=== PATIENT | male | born 1975 | race Caucasian/White ===

== ENCOUNTER 2018-12-04 13:07 | Observation (INO) | payer OTHER ==
--- NOTE | 2018-12-04 13:38 | RAD ---
XR Chest 1 View Portable HISTORY: Chest pain COMPARISON: None FINDINGS: The heart size is normal. The lungs are well expanded without focal areas of consolidation, pneumothorax or pleural effusions. There is evidence of old granulomatous disease. There are degenerative changes in the spine. IMPRESSION: No radiographic evidence of acute cardiopulmonary process.
[2018-12-04 13:51] LABS: #Eosinphils 0.1 thou/uL (0.0-0.7); #Lymphocytes 2.2 thou/uL (1.20-3.40); #Monocytes 0.4 thou/uL (0.11-0.59); #Neutrophils 4.2 thou/uL (1.40-6.50); %Basophils 0.6 % (0.0-1.0); %Eosinophils 1.8 % (0.0-10.0); %Lymphocytes 31.5 % (21.0-51.0); %Monocytes 5.5 % (0.0-10.0); %Neutrophils 60.6 % (42.0-75.0); Hemoglobin 14.5 g/dL (14.0-18.0); Mean Corpuscular HGB CONC 33.7 g/dL (32.0-36.0); Mean Corpuscular Hemoglobin 29.6 pg (27.0-31.0); Mean Corpuscular Volume 87.9 fL (78.0-98.0); Mean Platelet Volume 6.9 fL (7.4-10.4); Platelet Count 258 thou/uL (130-400); RBC Distribution Width 11.9 % (11.5-14.5); Red Blood Cell (RBC) Count 4.89 mill/uL (4.70-6.10); White Blood Cell (WBC) Count 6.8 thou/uL (4.8-10.8)
[2018-12-04 14:26] LABS: ALT (SGPT) 37 U/L (8-55); AST (SGOT) 22 U/L (5-34); Albumin 4.4 g/dL (3.5-5.0); Alkaline Phosphatase 80 U/L (40-150); Anion Gap 11 mmol/L (10-20); BUN (Urea Nitrogen) 15 mg/dL (8.9-20.6); Bilirubin, Total 0.8 mg/dL (0.2-1.2); Calc. Creatinine Clearance 0 mL/min (70-130); Calcium 9.4 mg/dL (7.8-10.44); Carbon Dioxide 27 mmol/L (22-29); Chloride 105 mmol/L (98-107); Estimated GFR-MDRD 72; Globulin 2.9 g/dL (2.4-3.5); Glucose 90 mg/dL (70-105); Lipase 29 U/L (8-78); Potassium 3.9 mmol/L (3.5-5.1); Protein, Total 7.3 g/dL (6.0-8.3); Sodium 139 mmol/L (136-145)
[2018-12-04] MEDS ORDERED: Nitroglycerin 0.4 MG TAB (25 Tab Bottle) PO PRN (16:15)
[2018-12-04] MEDS ORDERED: Acetaminophen 325 MG TAB PO PRN (16:15)
[2018-12-04] MEDS ORDERED: Ondansetron PF 4 MG/2 ML Vial IVP PRN (16:15)
[2018-12-04] MEDS ORDERED: Ondansetron ODT 4 MG TAB PO PRN (16:15)
[2018-12-04] MEDS ORDERED: Aspirin Chewable 81 MG TAB ONE (16:22)
[2018-12-04] MEDS ORDERED: Labetalol HCl 100 MG/20 ML VIAL SLOW IVP PRN (16:27)
[2018-12-04] MEDS ORDERED: hydrALAZINE 20 MG/ML VIAL SLOW IVP PRN (16:27)
[2018-12-04 17:11] LABS: Troponin I Less than 0.010 ng/mL (< 0.028)
[2018-12-04 17:31] VITALS: BMI 36.7
[2018-12-04 20:14] LABS: Troponin I 0.013 ng/mL (< 0.028)
[2018-12-04] MEDS: Famotidine 20 MG TAB PO SCH (20:29)
--- NOTE | 2018-12-04 22:11 | HP ---
PRIMARY CARE PHYSICIAN: None. CHIEF COMPLAINT: Chest pain. HISTORY OF PRESENT ILLNESS: Mr. Christiansen is a pleasant 43-year-old man with no past medical history, presented to [facility] earlier today after he experienced chest pain that started early Monday morning when he was working on a go-cart. He states that he had been working on a go-cart for several hours, he had been in a squatted and a sitting position most of that time and when he went to stand up, he had felt dizzy, lightheaded, slight diaphoretic and he noticed some chest pain started. He states that it felt that he was about to pass out, however, he had denied falling. He states that he had sat down and symptoms resolved after a few seconds. He states that his chest pain felt more like a pressure, it had started while he had been working on the go-cart, he states that it radiates to his left axilla and it has waxed and waned since then and upon arriving to the ER, he was found to be hypertensive with a blood pressure 155/103 and sinus tachycardic with a rate of 108. His O2 sats were stable at 98% on room air. He had denied any chest pain at that time. His EKG showed sinus tachycardia with a rate of 106, otherwise unremarkable. He states that he has no history of any hypertension or tachycardia in the past. He had denied any fever, chills, any headache, blurred vision, or dizziness. He had denied any chest pain, palpitation, shortness of breath, abdominal pain, nausea, or vomiting. He had denied any change in his stool or any numbness, tingling, or swelling down his upper or lower extremities. He had denied any trauma, but did state that he was using a wrench and other tools while working on his go-cart and he might have strained a muscle in his chest when he was pulling on a wrench. Serial troponins were ordered and the first one at this time. All other lab work unremarkable. D-dimer less than 0.27. REVIEW OF SYSTEMS: All other systems reviewed and found to be negative unless mentioned in the HPI. PAST MEDICAL HISTORY: None. PAST SURGICAL HISTORY: None. PSYCHIATRIC HISTORY: None. SOCIAL HISTORY: The patient denies any alcohol, tobacco, or illicit drug use. The patient lives at home with his and kids. KNOWN ALLERGIES: No known drug allergies. CURRENT HOME MEDICATIONS: None. PHYSICAL EXAMINATION: VITAL SIGNS: BP 141/97, pulse 79, respirations 16, temperature 98.5 degrees Fahrenheit, O2 saturations 97% on room air. GENERAL: The patient is awake, alert, and oriented x3. He is sitting up in bed with his at bedside and he appears to be in no acute distress at this time. HEENT: Atraumatic, normocephalic. Pupils are round and reactive to light. Extraocular muscles intact. Moist mucous membranes noted. NECK: Soft, supple. No JVD. Trachea midline. CARDIOVASCULAR: Positive S1 and S2. Regular rate and rhythm. No murmur auscultated. RESPIRATORY: Clear to auscultation bilaterally. No wheezes, rales, or rhonchi. ABDOMEN: Soft, nontender. Bowel sounds present. MUSCULOSKELETAL: Strength 5+ bilaterally in upper and lower extremities. Moves all extremities equal. Pedal and radial pulses palpable 2+ bilaterally, no edema noted. SKIN: Warm, dry, and intact. No rashes. No ulceration noted. PSYCHIATRIC: Good mood and affect. LABORATORY DATA: WBC 6.8, RBC 4.89, hemoglobin 14.5, platelets 258. D-dimer less than 0.27. Sodium 139, potassium 3.9, anion gap 11, BUN 15, creatinine 1.12, estimated GFR 72, glucose 90. AST 22, ALT 37. Troponin less than 0.010 x 1. Lipase 29. DIAGNOSTIC IMAGING: Portable chest x-ray showed no evidence of acute cardiopulmonary process. ASSESSMENT AND PLAN: 1. Chest pain, so far his workup is essentially unremarkable at this time. Serial troponins will be trended, so far negative x1. A stress test will be ordered for the morning to rule out any further ischemia. The patient will be placed on telemetry for further monitoring of his sinus tachycardia. If this persist, he may benefit with further management including a beta amaya. 2. Obese. 3. Deep venous thrombosis and gastrointestinal prophylaxis. 4. Code status, full code. DISPOSITION: Pending further workup and clinical findings, the patient will be ruled out at this time for his chest pain and will likely be discharged home tomorrow. Job ID: [id number]
[2018-12-05 06:19] LABS: #Eosinphils 0.1 thou/uL (0.0-0.7); #Lymphocytes 1.9 thou/uL (1.20-3.40); #Monocytes 0.4 thou/uL (0.11-0.59); #Neutrophils 3.4 thou/uL (1.40-6.50); %Basophils 0.8 % (0.0-1.0); %Eosinophils 2.2 % (0.0-10.0); %Lymphocytes 32.6 % (21.0-51.0); %Monocytes 7.3 % (0.0-10.0); %Neutrophils 57.1 % (42.0-75.0); Hemoglobin 13.8 g/dL (14.0-18.0); Mean Corpuscular HGB CONC 33.4 g/dL (32.0-36.0); Mean Corpuscular Hemoglobin 29.2 pg (27.0-31.0); Mean Corpuscular Volume 87.6 fL (78.0-98.0); Mean Platelet Volume 6.7 fL (7.4-10.4); Platelet Count 221 thou/uL (130-400); RBC Distribution Width 11.8 % (11.5-14.5); Red Blood Cell (RBC) Count 4.72 mill/uL (4.70-6.10); White Blood Cell (WBC) Count 5.9 thou/uL (4.8-10.8)
[2018-12-05 06:43] LABS: Anion Gap 9 mmol/L (10-20); BUN (Urea Nitrogen) 14 mg/dL (8.9-20.6); Calc. Creatinine Clearance 163 mL/min (70-130); Carbon Dioxide 27 mmol/L (22-29); Cardiac Risk 3.7 (Less than 4.5); Chloride 107 mmol/L (98-107); Cholesterol 145 mg/dl (< 200 Desired); Estimated GFR-MDRD 83; Glucose 94 mg/dL (70-105); HDL Cholesterol 39 mg/dL (>60 Neg Risk); LDL Cholesterol, Calculated 92 mg/dL; Potassium 3.8 mmol/L (3.5-5.1); Sodium 139 mmol/L (136-145); Triglycerides 70 mg/dL (Less than 150)
--- NOTE | 2018-12-05 10:41 | NM ---
EXAM: Nuclear medicine cardiac perfusion examination with ejection fraction HISTORY: Chest pain TECHNIQUE: Rest images: 10.6 mCi technetium 99m sestamibi Stress images: 32.0 mCi of technetium 9M sestamibi; Dontae protocol. The patient achieved 85% maximum predicted heart rate. COMPARISON: None FINDINGS: Tomographic images: No fixed or reversible perfusion defects. Gated images: Normal wall motion and ejection fraction of 44%. EDV: 158 mL LHR: 0.4 TID: 1.08 IMPRESSION: No evidence of ischemia
[2018-12-05] MEDS: Enoxaparin Sodium 40 MG/0.4 ML SYRINGE SC SCH (10:46)
[2018-12-05] MEDS: Aspirin 81 mg Enteric Coated Tablet PO SCH (10:46)
[2018-12-05] MEDS: Famotidine 20 MG TAB PO SCH ×2 (10:46→20:01)
--- NOTE | 2018-12-05 18:20 | PDOC.PN ---
- Subjective Encounter Start Date: 12/05/18 Encounter Start Time: 15:19 Subjective: Patient remains without any chest pain. Denies any sob. -: No nausea or vomiting. Tolerating oral intake without difficulty. -: No complaints at present. Denies any abdominal pain. - Objective Resuscitation Status - Order Detail: 12/04/18 16:15 Resuscitation Status Routine Co-Sign Provider: Resuscitation Status: FULL: Full Resuscitation Vital Signs & Weight: Vital Signs (12 hours) Temp Pulse Resp BP Pulse Ox 12/05/18 15:20 98.4 F 70 20 129/72 97 12/05/18 11:37 98.0 F 72 20 122/66 97 12/05/18 11:35 96 12/05/18 07:14 97.6 F 74 20 129/77 96 Weight Weight 263 lb 9.6 oz I&O: 12/04/18 12/05/18 12/06/18 06:59 06:59 06:59 Intake Total 425 Balance 425 Result Diagrams: 12/05/18 06:10 12/05/18 06:10 Phys Exam - Physical Examination Constitutional: NAD HEENT: PERRLA, moist MMs, sclera anicteric, oral pharynx no lesions Neck: no nodes, supple, full ROM Respiratory: no wheezing, no rales, no rhonchi, clear to auscultation bilateral Cardiovascular: RRR Gastrointestinal: soft, non-tender, no distention, positive bowel sounds Musculoskeletal: no edema Neurological: non-focal, normal sensation, moves all 4 limbs Psychiatric: normal affect, A&O x 3 Skin: no rash, normal turgor Dx/Plan (1) Chest pain Code(s): R07.9 - CHEST PAIN, UNSPECIFIED Status: Resolved - Plan cont current plan of care No further chest pain. S/p stress test, no ischemia but EF 44% -: Echo requested and shows global hypokinesis with EF 35-40%. -: Consult placed to cardiology. Discussed with Dr. Morgan. -: Patient for cath in the am. NPO at midnight. * .
[2018-12-05] MEDS ORDERED: Sodium Chloride 0.9% 1,000 ML IV SCH (23:55)
[2018-12-06 06:35] LABS: #Eosinphils 0.1 thou/uL (0.0-0.7); #Monocytes 0.5 thou/uL (0.11-0.59); #Neutrophils 3.6 thou/uL (1.40-6.50); %Basophils 0.2 % (0.0-1.0); %Eosinophils 1.6 % (0.0-10.0); %Lymphocytes 32.4 % (21.0-51.0); %Monocytes 7.9 % (0.0-10.0); %Neutrophils 57.9 % (42.0-75.0); Hemoglobin 13.9 g/dL (14.0-18.0); Mean Corpuscular HGB CONC 33.6 g/dL (32.0-36.0); Mean Corpuscular Hemoglobin 29.4 pg (27.0-31.0); Mean Corpuscular Volume 87.4 fL (78.0-98.0); Mean Platelet Volume 7.2 fL (7.4-10.4); Platelet Count 219 thou/uL (130-400); RBC Distribution Width 11.7 % (11.5-14.5); Red Blood Cell (RBC) Count 4.73 mill/uL (4.70-6.10); White Blood Cell (WBC) Count 6.1 thou/uL (4.8-10.8)
[2018-12-06 07:07] LABS: Anion Gap 11 mmol/L (10-20); BUN (Urea Nitrogen) 12 mg/dL (8.9-20.6); Calc. Creatinine Clearance 157 mL/min (70-130); Calcium 9.4 mg/dL (7.8-10.44); Carbon Dioxide 27 mmol/L (22-29); Chloride 107 mmol/L (98-107); Estimated GFR-MDRD 79; Glucose 87 mg/dL (70-105); Sodium 141 mmol/L (136-145)
[2018-12-06] MEDS: Enoxaparin Sodium 40 MG/0.4 ML SYRINGE SC SCH (07:46)
[2018-12-06] MEDS: Famotidine 20 MG TAB PO SCH (07:46)
[2018-12-06] MEDS ORDERED: Iopamidol 370 76% 100 ML VIAL ONE (09:53)
[2018-12-06] MEDS ORDERED: Iopamidol 370 76% 50 ML VIAL FS ONE (09:53)
[2018-12-06] MEDS ORDERED: Communication Order-Pharmacy FS SCH (10:30)
[2018-12-06] MEDS ORDERED: Heparin 10,000 UNITS/1 ML VIAL ONE (11:53)
[2018-12-06] MEDS ORDERED: Nitroglycerin 100MG/250ML BOT 250 ML ONE (11:53)
[2018-12-06] MEDS ORDERED: Verapamil 5 MG/2 ML VIAL ONE (11:53)
[2018-12-06] MEDS ORDERED: Sodium Chloride 0.9% 200 ML IV PRN (13:20)
[2018-12-06] MEDS ORDERED: Nitroglycerin 0.4 MG TAB (25 Tab Bottle) SL PRN (13:20)
[2018-12-06] MEDS ORDERED: Acetaminophen/Codeine 30-300mg Tablet PO PRN ×2 (13:20)
[2018-12-06 14:09] VITALS: TEMP 98
[2018-12-06] MEDS: Aspirin 81 mg Enteric Coated Tablet PO SCH (14:46)
[2018-12-06] MEDS ORDERED: Lisinopril 5 MG TAB PO SCH (15:00)
[2018-12-06 15:07] VITALS: BP 139/69
--- NOTE | 2018-12-06 18:29 | CON ---
DATE OF CONSULTATION: 12/06/2018 INDICATION FOR CONSULTATION: A 43-year-old patient, who was admitted with chest pain, who was found to have a negative stress test, but had ejection fraction anywhere between 35% to 44% based on echocardiogram as well as the stress test. HISTORY OF PRESENT ILLNESS: This very pleasant 43-year-old gentleman, who has had no previous cardiac history, he is aware of. He denies any history of tobacco abuse, significant alcohol use, diabetes, hypertension, hypercholesterolemia, or family history of coronary artery disease. He presented to the hospital after having some chest discomfort, which he describes as being heavy and pressure-like starting on Monday. He did have some more issues on Monday and presented to the emergency room. EKG is unremarkable, does not show any acute evidence of ischemia. Stress test was negative. He does have an ejection fraction on stress test is 44% by echocardiogram. He does have a mildly dilated left atrium and left ventricle with moderate mitral valve regurgitation, mild tricuspid valve regurgitation. Ejection fraction is estimated at 35% to 40%. He denies any further chest pain. He is unremarkable otherwise. PAST MEDICAL HISTORY: His past medical history is relatively unremarkable except for a fractured hand on the right wrist fracture and also a fractured nose with deviated septum. Otherwise, past medical history was unremarkable. FAMILY HISTORY: Noncontributory, unremarkable. ALLERGIES: NONE. MEDICATIONS: Present medications, he was on no medications prior to being admitted to the hospital. His medications at this time, he has been placed on p.r.n. medications. Now, he will be placed on Pepcid 20 mg b.i.d., aspirin 81 mg a day. He has been on Lovenox 40 mg subcu once a day for DVT prophylaxis. Otherwise, he is not on any significant medications. REVIEW OF SYSTEMS: A 12-point review of systems unremarkable except what was noted in the history of present illness. PHYSICAL EXAMINATION: GENERAL: Reveals a very pleasant, well-developed, well-nourished gentleman, in no acute distress. VITAL SIGNS: His blood pressure is 131/85, heart rate is 75 and regular. He is afebrile. Respiratory rate 16. HEENT: Shows the head to be normocephalic and atraumatic. Physical examination is per my dictation by the nurse practitioner, who saw the patient earlier today, would agree with assessment. IMPRESSION: Atypical chest pain in an otherwise healthy 43-year-old patient, who has a decrease in ejection fraction with mild global hypokinesis. I have explained to him the indication, the risks for us to proceed with cardiac catheterization to rule out evidence of underlying coronary artery disease. I have explained him the procedure and the risks to include bleeding, infection, possible myocardial infarction, cerebrovascular accident, renal insufficiency, allergic to contrast reaction, and even possibility of . He understands and agrees to proceed. We will plan for cardiac catheterization later this morning. If he is found to have any significant abnormalities or stenosis, he may need to undergo further intervention. Otherwise, if he has cardiomyopathy, then we will need to treat him medically. Job ID: [id number]
--- NOTE | 2018-12-06 22:36 | CON ---
DATE OF CONSULTATION: PRIMARY CARE DOCTOR: He does not have any primary care doctor. PRIMARY SENIOR SALES ASSISTANT: Miguelina Yancey MD. REFERRING DOCTOR: Nicanor doctor. REASON FOR CARDIOLOGY CONSULT: Global hypokinesia with severe chest pain and EF is 35% to 40%. HISTORY OF PRESENT ILLNESS: Mr. Christiansen is a 43-year-old male with no significant medical history prior to this admission, presents to the emergency department for heaviness and pressure-like discomfort to mediastinal area since Monday. He denied any dizziness, lightheadedness, shortness of breath, or any other cardiac complaints during the episodes. He had an echocardiogram, which shows EF of 35% to 40%, mildly dilated left atrium, global hypokinesis, mildly increased LVH and moderate mitral valve regurgitation and mild tricuspid regurgitation. The patient's stress test yesterday showed no ischemia, with an ejection fraction of 44%. At this moment, the patient denied any cardiac complaints. PAST MEDICAL HISTORY: None. PAST SURGICAL HISTORY: None. FAMILY HISTORY: The patient's mother and the patient's maternal grandmother has a history of congestive heart failure. SOCIAL HISTORY: He is . He has 3 children, who live well. He denied any EtOH, tobacco, or illicit drug abuse. He is working as a full-time. ALLERGIES: HE HAS NO KNOWN DRUG ALLERGIES. MEDICATIONS: He takes ibuprofen as needed. REVIEW OF SYSTEMS: A 12-point review of systems negative unless otherwise mentioned in the HPI. PHYSICAL EXAMINATION: VITAL SIGNS: Blood pressure 139/69, pulse is in the 80s, in sinus rhythm, temperature 98.0, O2 saturation 97% with room air, and respiratory rate 18. GENERAL: The patient is alert and oriented x4, not in acute distress. HEENT: Head is normocephalic and atraumatic. Eyes: Extraocular muscle movement intact. ENT and Mouth: Oral and nasal mucosa moist without lesion. NECK: Supple. Normal range of motion. No JVD. RESPIRATORY: Clear to auscultate bilaterally. No wheezing, rales, or rhonchi noted. CARDIOVASCULAR: Normal S1 and S2. There is no S3 or S4. No significant murmur, hives, or thrill noted. EXTREMITIES: 2+ pulses in the bilateral upper and lower extremities. No edema in the lower extremities. ABDOMEN: Soft, nontender. No mass to palpate. Bowel sounds are present. SKIN: Warm and dry. No erythema, rash or lesion noticed. MUSCULOSKELETAL: The patient is able to move all extremities without any difficulty. The patient denied claudication. PSYCHIATRIC: The patient's mood is appropriate. NEUROLOGIC: Alert and oriented x4. Nonfocal. LABORATORY DATA: WBC 6.1, hemoglobin 13.9, hematocrit 41.3, platelet 219. D-dimer is less than 0.27. Sodium 141, potassium 4.0, BUN 12, creatinine 1.03, calcium 8.7, AST 22, ALT 37. TSH 1.1573. Troponin level is negative. Cholesterol 145, triglycerides 70, HDL 39, and LDL 92. Chest x-ray showed no acute cardiopulmonary process. ASSESSMENT AND PLAN: 1. Low ejection fraction with global hypokinesis. The patient denied any shortness of breath, dizziness, lightheadedness, or any other cardiac complaints at this moment. The patient is going to undergo cardiac catheterization by Dr. Yancey today. He has been n.p.o. 2. Chest pain. The patient's troponin level is negative. The patient's EKG has not changed, show any ST-segment change or T-wave inversion. Again, the patient is going to undergo cardiac catheterization today. Thank you very much for Cardiology Service to participate in the care of this patient. We will follow along the patient's care team and make further recommendations as appropriate. Job ID: [id number]
[2018-12-07] MEDS ORDERED: Lisinopril 5 MG TAB PO SCH ×2 (09:00)
--- NOTE | 2018-12-07 14:23 | DIS ---
DATE OF ADMISSION: 12/04/2018 DATE OF DISCHARGE: 12/06/2018 This is RITO Johnson dictating a report for Jerad Krause MD. CONSULTING PHYSICIANS: Dr. Yancey, Cardiology. DISCHARGE DIAGNOSES: 1. Atypical chest pain. 2. Decreased ejection fraction and mild global hypokinesis. 3. Status post cardiac catheterization. HOSPITAL COURSE: Mr. Christiansen is a pleasant 43-year-old man, who was admitted after an episode of chest pain for ACS rule out. The patient underwent laboratory studies including serial troponins, which were all negative. He had a D-dimer checked, which was negative. A chest x-ray was done on initial presentation, which showed no acute cardiopulmonary process. The patient has no known past medical history, however, does report a strong family history of heart disease in his mother but does not know the details. He was scheduled for a stress test which showed no evidence of ischemia, however, the ejection fraction was 44%. This prompted further imaging with an echocardiogram, which then revealed an ejection fraction of 35% to 40% with mildly dilated left atrium and global hypokinesis. The left ventricular size was mildly increased. Moderate mitral regurgitation and mild tricuspid regurgitation were present. The patient was then evaluated by Dr. Yancey of Cardiology, who advised cardiac catheterization to rule out evidence of underlying coronary artery disease. Per Dr. Yancey, the catheterization was unremarkable. Therefore, he was recommended medical management for cardiomyopathy. 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 Yancey to undergo outpatient imaging with CT dissection protocol. The patient remained pain-free throughout his hospital stay and without any complaints. He tolerated a regular diet after his procedure and was medically cleared for discharge home. REVIEW OF SYSTEMS: Again, denies having any recurrent chest pain. No shortness of breath. No headaches or dizziness. No abdominal pain or cramping. No nausea or vomiting. Tolerating a regular diet. No urinary symptoms or bowel changes. All other review of systems are negative. PHYSICAL EXAMINATION: GENERAL: The patient appears overweight, but well developed and in no acute distress. VITAL SIGNS: Temperature 98.0, pulse 83, blood pressure 129/69, respirations 16, O2 saturation 97% on room air. HEENT: Normocephalic and atraumatic. Pupils are equal, round, and reactive to light. Sclerae without icterus. Oropharynx is clear. NECK: Supple without lymphadenopathy. LUNGS: Clear to auscultation bilaterally without wheezes, rales, or rhonchi. CARDIAC: Regular rate and rhythm without audible murmurs, rubs, or gallops. ABDOMEN: Soft, nontender, and nondistended. Normoactive bowel sounds present. EXTREMITIES: No lower leg swelling or edema. No calf tenderness. NEUROLOGIC: Alert and oriented x3. SKIN: Without rash or jaundice. LABORATORY DATA: White blood count 6.1, hemoglobin 13.9, hematocrit 41.3, and platelets 219. Sodium 141, potassium 4.0, BUN 12, creatinine 1.03, GFR 79, glucose 87, calcium 9.4, triglycerides 70, cholesterol 145, LDL 92, HDL 39. Heart disease risk ratio 3.7. Lipase 29. TSH 1.1573. LFTs unremarkable. IMAGING DATA: As mentioned above in hospital course. CONDITION: Stable at discharge. ACTIVITY: As tolerated. No heavy lifting given recent catheterization as advised. DIET: Heart healthy. DISCHARGE MEDICATIONS: 1. Prescription given for aspirin 81 mg p.o. daily. 2. Prescription given for lisinopril 5 mg p.o. daily. FOLLOWUP: 1. The patient was advised to follow up with Dr. Yancey as an outpatient. 2. Advised to follow up with primary care physician within 1 week. Will need to undergo CT dissection imaging to better evaluate the enlarged area noted during catheterization. DISPOSITION: The patient was medically cleared for discharge home. The patient's case was discussed with Dr. Krause, who agrees with plan of care as described above. Job ID: [id number]
--- NOTE | 2018-12-08 16:05 | EKG ---
Test Reason : CP Blood Pressure : / mmHG Vent. Rate : 106 BPM Atrial Rate : 106 BPM P-R Int : 172 ms QRS Dur : 092 ms QT Int : 322 ms P-R-T Axes : 064 014 014 degrees QTc Int : 427 ms Sinus tachycardia Otherwise normal ECG Confirmed by REFUGIO TIDWELL ([id number]), video news editor TIERNEY MCKEE ([id number]) on 12/08/2018 4:05:23 PM Referred By: Confirmed By:REFUGIO TIDWELL
== END 2018-12-06 17:23 | disposition home or self-care (01) ==
LOC: ERS 13:07 → 2SW 15:25
PROVIDERS: ADMIT Internal Medicine; ATTEND Internal Medicine
PROC: 4A023N7 Measurement of Cardiac Sampling and Pressure, Left Heart, Percutaneous Approach (ICD-10-PCS; principal; 2018-12-06)
PROC: B2111ZZ Fluoroscopy of Multiple Coronary Arteries using Low Osmolar Contrast (ICD-10-PCS; 2018-12-06)
DX: R07.89 Other chest pain (principal); I11.9 Hypertensive heart disease without heart failure; R00.0 Tachycardia, unspecified; I27.20 Pulmonary hypertension, unspecified; R03.0 Elevated blood-pressure reading, without diagnosis of hypertension; E66.9 Obesity, unspecified; Z68.36 Body mass index [BMI] 36.0-36.9, adult
CPT/HCPCS: 36415; 71045; 78452; 80048; 80053; 80061; 83690; 84443; 84484; 85025; 85379; 93005; 93017; 93306; 93458; 93567; 94760; 96372; A9500; C1769; G0378; J1644; J1650; Q9967